=== PATIENT | female | born 1975 | race Caucasian/White ===

== ENCOUNTER → 2017-09-13 | Outpatient (CLI) | payer OTHER ==
--- NOTE | 2017-09-13 15:39 | RAD ---
Three-view left foot study Clinical indications: Fell one year ago. Left foot pain since. FINDINGS: No acute fracture or dislocation or osteolytic process is seen. No periosteal reaction is seen. Small plantar and posterior spurs of the calcaneus are seen. No significant arthritic change is seen. IMPRESSION: Small calcaneal spurs. Electronically signed by: Jack Grimes MD (09/13/2017 3:35 PM) [id number]
== END | disposition home or self-care (01) ==
LOC: PMG 15:05
PROVIDERS: ATTEND Family Medicine
DX: M77.32 Calcaneal spur, left foot (principal)
CPT/HCPCS: 73630